=== PATIENT | male | born 1995 | race Caucasian/White ===

== ENCOUNTER 2017-10-22 00:11 | Emergency (ER) | payer OTHER ==
[~2017-10-22] VITALS: Ht 182.9 cm; Wt 81.8 kg
[2017-10-22 00:11] VITALS: BP 156/62
[2017-10-22] MEDS ORDERED: SERT50TA PO (00:25)
--- NOTE | 2017-10-23 08:00 | ECGEPIP ---
Stationary ECG Study [facility] - ED Test Date: 2017-10-22 Pat Name: GABRIELLA BURK Department: Room: - Gender: M Supply Specialist: KimballB: [id number] Requested By: MINISTERIO HILL Order Number: [id number] Reading MD: Jona Beauchamp Measurements Intervals [place] Rate: 73 P: -2 WV: 130 QRS: 53 QRSD: 104 T: 46 QT: 372 QTc: 412 Interpretive Statements SINUS RHYTHM WITH FREQUENT SUPRAVENTRICULAR PREMATURE COMPLEXES BENIGN EARLY REPOLARIZATION NO PRIORS FOR COMPARISON Electronically Signed On 10-23-2017 8:00:03 EST by Jona Beauchamp
== END 2017-10-22 02:13 | disposition left against medical advice (07) ==
LOC: M ED 00:11
DX: F10.20 Alcohol dependence, uncomplicated (principal); R07.1 Chest pain on breathing; F41.9 Anxiety disorder, unspecified; Z79.899 Other long term (current) drug therapy; Z91.018 Allergy to other foods; F17.210 Nicotine dependence, cigarettes, uncomplicated

== ENCOUNTER → 2017-12-09 | Outpatient (CLI) | payer OTHER | LOC: M CARPUL 09:55 | DX: R07.9 Chest pain, unspecified (principal) | CPT/HCPCS: 93306 ==